=== PATIENT | female | born 1980 | race Caucasian/White ===

== ENCOUNTER 2017-05-18 19:44 | Emergency (ER) | payer MEDICARE ==
[2017-05-18 20:54] LABS: HCG URINE NEGATIVE (NEGATIVE)
[2017-05-18 21:32] LABS: APPEARANCE CLEAR (CLEAR); COLOR YELLOW (YELLOW); GLUCOSE NEGATIVE (NEGATIVE); NITRITE NEGATIVE (NEGATIVE); PROTEIN NEGATIVE (NEGATIVE)
[2017-05-18 21:33] LABS: BILIRUBIN NEGATIVE (NEGATIVE); KETONE NEGATIVE (NEGATIVE); UROBILINOGEN NORMAL (NORMAL)
[2017-05-18 21:41] LABS: UDS - AMPHET POSITIVE QUAL (NEGATIVE); UDS - BARB NEGATIVE QUAL (NEGATIVE); UDS - BENZO NEGATIVE QUAL (NEGATIVE); UDS - COCAINE NEGATIVE QUAL (NEGATIVE); UDS - OPIATE NEGATIVE QUAL (NEGATIVE); UDS - PCP NEGATIVE QUAL (NEGATIVE); UDS - THC NEGATIVE QUAL (NEGATIVE)
== END 2017-05-18 21:20 | disposition home or self-care (01) ==
LOC: D.ER 19:44
PROVIDERS: Emergency Medicine
DX: L03.011 Cellulitis of right finger (principal); F90.9 Attention-deficit hyperactivity disorder, unspecified type; F31.9 Bipolar disorder, unspecified; F17.200 Nicotine dependence, unspecified, uncomplicated

== ENCOUNTER 2017-05-23 16:07 | Emergency (ER) | payer MEDICARE, MEDICAID | END 2017-05-23 18:43 | disposition home or self-care (01) | LOC: D.ER 16:07 | DX: L03.011 Cellulitis of right finger (principal); F90.9 Attention-deficit hyperactivity disorder, unspecified type; F31.89 Other bipolar disorder ==